=== PATIENT | male | born 1990 ===

== ENCOUNTER 2024-06-01 19:11 | Emergency (ER) | payer BC ==
[2024-06-01] MEDS ORDERED: Sodium Chloride 0.9% 10 ML Syringe FLUSH PRN (19:20)
[2024-06-01 19:33] LABS: BASOPHILS PERCENT AUTO 0.5 % (0.3-3.8); EOSINOPHILS ABSOLUTE AUTO 0.1 x10-3/uL (0.0-0.6); EOSINOPHILS PERCENT AUTO 1.2 % (0.1-6.8); HEMATOCRIT 45.8 % (38.3-50.1); HEMOGLOBIN 16.3 g/dL (12.9-17.7); LYMPHOCYTES ABSOLUTE AUTO 3.1 x10-3/uL (0.5-4.5); LYMPHOCYTES PERCENT AUTO 32.9 % (15.8-45.3); MEAN CORPUSCULAR HEMOGLOBIN 32.4 pg (27.0-33.3); MEAN CORPUSCULAR HGB CONC 35.7 g/dL (28.7-35.3); MEAN CORPUSCULAR VOLUME 90.8 fL (80.8-98.7); MEAN PLATELET VOLUME 8.3 fL (6.7-11.0); MONOCYTES ABSOLUTE AUTO 0.5 x10-3/uL (0.0-1.2); MONOCYTES PERCENT AUTO 5.7 % (5.5-15.2); NEUTROPHILS ABSOLUTE AUTO 5.6 x10-3/uL (1.7-6.9); NEUTROPHILS PERCENT AUTO 59.7 % (40.3-71.8); PLATELET COUNT,PLT 282 x10(3)uL (117-477); RED BLOOD CELL COUNT 5.05 x10(6)uL (3.90-5.90); RED CELL DISTRIBUTION WIDTH 14.2 % (12.4-15.0); WHITE BLOOD CELL COUNT,WBC 9.4 x10-3/uL (3.2-10.1)
[2024-06-01 19:36] LABS: BLOOD UREA NITROGEN,BUN 12 mg/dL (7-18); CALCIUM 9.1 mg/dL (8.6-10.2); CARBON DIOXIDE,CO2 24 mmol/L (21-32); CHLORIDE,CL 104 mmol/L (100-110); CREATININE 1.2 mg/dL (0.70-1.30); EST CRCL DRUG DOSING (CG) 89.56 mL/min; ESTIMATED GFR 81 mL/min (>60); GLUCOSE RANDOM 86 mg/dL (80-116); POTASSIUM,K 3.8 mmol/L (3.5-5.3); SODIUM,NA 144 mmol/L (135-145)
[2024-06-01 19:41] LABS: A/G RATIO 1.7; ACETAMINOPHEN 16 ug/mL (<2); ALANINE AMINOTRANSFERASE,ALT 32 U/L (12-36); ALBUMIN 4.8 g/dL (3.5-5.2); ALKALINE PHOSPHATASE 55 IU/L (56-112); ASPARTATE AMNIOTRANSFERASE,AST 18 IU/L (5-25); BILIRUBIN TOTAL 0.7 mg/dL (0.1-1.3); PROTEIN TOTAL,TP 7.7 g/dL (6.0-8.0); SALICYLATE 3.7 mg/dL (<2.8)
== END 2024-06-01 23:51 | disposition home or self-care (01) ==
LOC: FB.ED 19:11
DX: F32.A Depression, unspecified (principal); R45.88 Nonsuicidal self-harm; Z88.0 Allergy status to penicillin; Z88.8 Allergy status to other drugs, medicaments and biological substances; Z79.899 Other long term (current) drug therapy
CPT/HCPCS: 36415; 80053; 80143; 80179; 80307; 85025; 93005; 99285